=== PATIENT | female | born 1960 | race Caucasian/White ===

== ENCOUNTER 2021-09-20 18:35 | Emergency (ER) | payer BC ==
[2021-09-20] MEDS ORDERED: Iopamidol 755 Mg/ML 100 ML Bottle IV ONE (19:53)
[2021-09-20] MEDS ORDERED: Sodium Chloride 0.9% 10 ML Syringe FLUSH PRN (20:35)
[2021-09-20] MEDS ORDERED: Ondansetron 4 MG/2 ML SDV IVPUSH ONE (20:35)
[2021-09-20] MEDS ORDERED: Morphine 4 MG/ML VIAL IVPUSH ONE (20:35)
== END 2021-09-20 23:30 ==
LOC: FB.ED 18:35
DX: K37 Unspecified appendicitis (principal); Z96.641 Presence of right artificial hip joint; Z98.890 Other specified postprocedural states
CPT/HCPCS: 36415; 74177; 80053; 81001; 83690; 85025; 86140; 96374; 96375; 99284; J2270; J2405; Q9967